=== PATIENT | female | born 1990 | race Caucasian/White ===

== ENCOUNTER 2017-08-06 20:36 | Observation (INO) | payer MEDICAID ==
--- NOTE | 2017-08-06 21:12 | HP ---
Chief Complaint - Chief Complaint Date of Service: 08/06/17 Time of Service: 21:05 Chief Complaint: abdominal pain, acute appendicits History of Present Illness: Started having abdominal pain sometime early today. Presented to [facility] ER and was found to have RLQ tenderness, elevated WBC and CT scan compatible with acute appendicitis. NO surgeon there, so transferred here for treatment. - Patient's Past Medical History Patient History - Medical: ADHD, Bipolar, GERD Patient History - Cardiac/Respiratory: No pertinent hx Patient History - Cancer: No Hx of Cancer Patient History - Surgical Procedures: Other Patient History - Other: None - Family History Family History:: no untoward family reactions to anesthesia, no familial bleeding tendencies - Social History Living Situations: spouse Abuse History: No History of abuse Psych History: Hx of Bipolar Disorder, Hx of Violent Behavior Smoking Status: Never smoker Alcohol Use: none Drug Use: none - Immunizations Immunizations Up to Date: Yes Hx Pneumococcal Vaccination: Yes History of Influenza Vaccine: Yes Review Of Systems (GEN) - Review of Systems EENTM: Present: No Symptoms Reported Respiratory: Present: No Symptoms Reported Cardiac: Present: No Symptoms Reported Abdominal: Present: Nausea, Vomiting, Abdominal Pain Genitourinary: Present: No Symptoms Reported, Frequency Musculoskeletal: Present: No Symptoms Reported Neurological: Present: No Symptoms Reported Skin: Present: No Symptoms Reported Immunizations: IMMUNIZATION HX Immunizations Up to Date Yes History of Influenza Vaccine Yes Hx Pneumococcal Vaccination Yes Allergies/Adverse Reactions: Allergies Allergy/AdvReac Type Severity Reaction Status Date / Time No Known Allergies Allergy Unverified 08/16/13 14:58 Home Medications: HOME MEDICATIONS Pantoprazole Sodium [Protonix] 20 mg PO DAILY 08/16/13 [Last Taken Unknown] lamoTRIgine [Lamictal] 200 mg PO DAILY 08/16/13 [Last Taken Unknown] Ferrous Sulfate [Iron] 325 mg PO DAILY 08/06/17 [Last Taken Unknown] Fluphenazine HCl [Fluphenazine] 2 mg PO DAILY 08/06/17 [Last Taken Unknown] Fluticasone Propionate [Flovent Diskus] 50 mcg IH DAILY 08/06/17 [Last Taken Unknown] [place] Carbonate 100 mg PO DAILY 08/06/17 [Last Taken Unknown] Methylphenidate HCl [Methylphenidate ER] 36 mg PO DAILY 08/06/17 [Last Taken Unknown] Ranitidine HCl [Heartburn Relief] 150 mg PO DAILY 08/06/17 [Last Taken Unknown] clonazePAM [Klonopin] 0.5 mg PO DAILY 08/06/17 [Last Taken Unknown] rOPINIRole HCL [Requip] 1 mg PO DAILY 08/06/17 [Last Taken Unknown] Exam - Exam Vital Signs: Vital Signs - Last Taken Temp 37.5 C 08/06/17 20:47 Pulse 117 H 08/06/17 20:47 Resp 18 08/06/17 20:47 BP 143/95 08/06/17 20:47 Pulse Ox 100 08/06/17 20:47 Constitutional: Present: Alert, Oriented x3, Cooperative, Well developed, Well nourished, Mild distress ENT Exam: Present: normal ENT inspection Eye Exam: bilateral eye: normal inspection Neck: Present: full range of motion, normal inspection Back Exam: Present: normal inspection Breasts: Present: Exam deferred Respiratory: Present: normal breath sounds Cardiovascular/Chest: Present: normal peripheral pulses, regular rate, rhythm, no murmur Peripheral Pulses: dorsalis-pedis (R): 4+, dorsalis-pedis (L): 4+, radial (R): 4 +, radial (L): 4+ Abdomen: Present: other - tender RLQ with rebound /Rectal: Present: Exam deferred Extremity: Present: normal range of motion, normal inspection, no pedal edema, no calf tenderness, normal capillary refill Skin Exam: Present: normal color, warm/dry Neurologic: Present: nail sticker II-XII nml as tested, normal cerebellar test, no motor/ sensory deficits Appearance: Present: appropriate appearance Eye contact: Present: cooperative, good eye contact, normal speech Thoughts: Present: normal thought pattern Diagnostic Studies: CT reviewed Assessment/Plan - Assessment/Plan (1) Acute appendicitis Assessment: Discussed appendicitis and treatment. The risks and possible complications were explained as well as the expected post-op course. After an interactive discussion, her questions were answered to her apparent satisfaction and informed consent for laparoscopic appendectomy obtained. Problem: Acute
[2017-08-06] MEDS ORDERED: CEFOXITIN SODIUM 2 GM in DEXTROSE 5 % IN WATER 100 ML IV ONE ×2 (21:30)
[2017-08-06] MEDS ORDERED: RINGER'S SOLUTION,LACTATED 1,000 ML IV ONE (21:35)
[2017-08-06] MEDS ORDERED: BUPIVACAINE HCL/EPINEPHRINE 50 ML VIAL IJ ONE ×2 (22:05)
[2017-08-06] MEDS ORDERED: MUPIROCIN 22 APPL TUBE TP ONE (22:35)
[2017-08-06] MEDS ORDERED: MORPHINE SULFATE 4 MG/ML SYRG IV PRN (22:53)
[2017-08-06] MEDS ORDERED: NALOXONE HCL 0.4 MG/ML VIAL IV PRN (23:00)
[2017-08-06] MEDS ORDERED: PANTOPRAZOLE SODIUM 40 MG in NORMAL SALINE 100 ML IV SCH (23:00)
[2017-08-06] MEDS ORDERED: CEFOXITIN SODIUM 2 GM in DEXTROSE 5 % IN WATER 100 ML IV SCH ×2 (23:00)
[2017-08-06] MEDS ORDERED: diphenhydrAMINE HCL 50 MG/ML VIAL IV PRN (23:00)
[2017-08-06] MEDS ORDERED: HYDROmorphone HCL 2 MG/ML VIAL IV PRN (23:00)
[2017-08-06] MEDS ORDERED: PROMETHAZINE HCL 12.5 MG in DEXTROSE 5 % IN WATER 50 ML IV PRN ×2 (23:00)
--- NOTE | 2017-08-06 23:10 | OR ---
Operative Report - Dictated Report Narrative: Date of operation 08/06/2017 Preoperative diagnosis: Acute appendicitis Postoperative diagnosis: Acute appendicitis Operation: Laparoscopic appendectomy Surgeon: LINO Peoples MD Anesthesia: GenColeen Lambert CRNA Indications for procedure: The patient is a 26-year-old female who began with abdominal pain this morning. She presented to the emergency room at [facility] where she was found to have right lower quadrant tenderness, elevated white blood cell count, and CT scan evidence of acute appendicitis. There is no surgeon at that institution and she was transferred here for treatment. Findings: Acute uncomplicated appendicitis Narrative of procedure: The patient was identified preoperatively, and prior to the administration of anesthetic a multidisciplinary timeout was observed. The patient was placed supine, SCDs were applied, and 2 g of intravenous Mefoxin administered. General endotracheal anesthetic was administered. The patient's abdomen was prepped with Betadine solution, and a generous operating field outlined with 4 sterile towels. The remainder the patient was covered with a sterile disposable drape. A transverse infraumbilical skin incision was made, and dissection was carried along the umbilical stalk until the fascia of the linea alba was encountered. This was incised. The peritoneum was elevated and incised to allow entry into the abdomen under direct vision. A Hussan cannula was placed and the abdomen insufflated with CO2. The laparoscopic camera was introduced and the abdomen briefly explored. Those portions of the liver, gallbladder, stomach, small bowel, and colon visualized appeared normal. The appendix was not immediately visible. Next under direct vision, 2 additional working ports were inserted through separate skin incisions, one in the suprapubic area one in the left lower quadrant. The apex of the cecum was elevated revealing an acutely inflamed appendix. The appendix was elevated and the mesoappendix and appendix were transected with a single application of a laparoscopic RICH stapling device. The stump of the appendix was seen to be hemostatic and gas and liquid tight. The mesoappendix was seen to be hemostatic. The appendix was placed in an Endobag and parked in the right lower quadrant. The small working ports were then withdrawn under direct vision to ensure entry site hemostasis. The appendix was removed in conjunction with the Hussan cannula. The pneumoperitoneum was allowed to escape , and after receiving a correct sponge needle and instrument count attention was turned to closing the abdomen. The fascia and peritoneum at the umbilicus were approximated with interrupted sutures of #1 Vicryl. Skin incisions were approximated with interrupted vertical mattress sutures of 4-0 nylon. The operative sites were washed and dried. Dressings of Bactroban ointment and large Band-Aids were applied to the small port sites. The umbilical incision was dressed with Bactroban ointment, 2 x 2, large Band-Aid, and Medipore tape. The operative procedure was terminated at this point. There was no measurable blood loss. 0.25% Marcaine with epinephrine was used for local anesthetic infiltration area the appendix was submitted to pathology. The patient tolerated the anesthetic and procedure well without complication and was transferred to the recovery room awake, extubated, and in stable condition. Reviewed and electronically signed
[2017-08-07] MEDS: oxyCODONE HCL/ACETAMINOPHEN 1 TAB TABLET PO PRN ×3 (00:02→13:18)
[2017-08-07] MEDS: ONDANSETRON HCL/PF 2 MG/ML VIAL IV PRN ×2 (00:02→09:11)
[2017-08-07] MEDS: RINGER'S SOLUTION,LACTATED 1,000 ML IV PRN ×2 (00:05→09:07)
[2017-08-07] MEDS: CEFOXITIN SODIUM 2 GM in DEXTROSE 5 % IN WATER 100 ML IV SCH ×6 (02:43→15:32)
[2017-08-07] MEDS ORDERED: MORPHINE SULFATE 2 MG/ML DISP.SYRIN IV PRN (07:15)
[2017-08-07] MEDS ORDERED: NALOXONE HCL 1 MG/1 ML SYRG IV PRN (07:15)
--- NOTE | 2017-08-07 13:26 | DS ---
(1) Acute appendicitis Problem: Acute Description of Stay: Had uneventful laparoscopic appendectomy for acute uncomplicated appendicitis. Chlorhixidine wipes, pre-op and post-op antibiotic, SCD's and early ambulation. VS remained normal. Presenting pain replaced with incisional discomfort controlled with po Percocet. Tolerated advanced diet and ambulated independently. Dressings dry. Home. instructions given. Rx for Percocet. Phone #'s to call for questions or concerns. RTC 08/16/17 Procedures Performed: see notes below - laparoscopic appendectomy Discharge Disposition: Home self care Disposition: Home self-care Condition: Stable Discharge Activity: Activity as tolerated, No Lifting Discharge Diet: General/regular food Problem Oriented Discharge Instructions to Patient/Family: Laparoscopic Appendectomy, Adult, Care After, [id number] Complete Home Medications List: Complete Home Medication List: Fluphenazine HCl [Fluphenazine] 2 mg PO BID 08/06/17 Fluticasone Propionate [Flovent Diskus] 50 mcg IH PRN PRN 08/06/17 [place] Carbonate 100 mg PO DAILY 08/06/17 Methylphenidate HCl [Methylphenidate ER] 36 mg PO DAILY 08/06/17 Omeprazole [Prilosec] 20 mg PO DAILY 08/06/17 Ranitidine HCl [Heartburn Relief] 150 mg PO BID 08/06/17 clonazePAM [Klonopin] 0.5 mg PO BID 08/06/17 rOPINIRole HCL [Requip] 1 mg PO DAILY 08/06/17 oxyCODONE HCL/ACETAMINOPHEN [Percocet 5 MG/325 MG] 2 tab PO Q4H PRN #18 tablet 08/07/17
[2017-08-07 13:47] VITALS: BP 130/76
== END 2017-08-07 16:40 | disposition home or self-care (01) ==
LOC: ER 20:36 → SUR 21:15 → MS 23:28
PROVIDERS: ADMIT Surgery; ATTEND Surgery
PROC: 0DTJ4ZZ Resection of Appendix, Percutaneous Endoscopic Approach (ICD-10-PCS; principal; 2017-08-06 21:30)
DX: K35.3 Acute appendicitis with localized peritonitis (principal)
CPT/HCPCS: 44970; 88304; 96365; 96367; 96375; 96376; G0378; J2405